=== PATIENT | female | born 1925 | race Caucasian/White ===

== ENCOUNTER 2016-09-29 13:18 | Inpatient (IN) | payer MEDICARE, BC ==
--- NOTE | 2016-09-29 13:55 | ERNOTE ---
Medical Problem HPI - Narrative Date of Service: 09/29/16 - General Chief Complaint: Nausea/Vomiting Time Seen by Provider: 09/29/16 13:42 Source: patient Exam Limitations: no limitations - Immun/Allergies/Home Medications Allergies/Adverse Reactions: Allergies No Known Allergies Allergy (Verified 09/29/16 13:39) Home Medications: HOME MEDICATIONS Aspirin [Aspirin Enteric Coated] 81 mg PO DAILY 04/11/13 [Last Taken Unknown] - History of Present History Narrative: Pt. comes in with c/o nausea and vomiting for two days. Pt. denies any SOB, CP , but states that she feels weak and has not been able to hold down foods or fluid since onset of symptoms. Pt. also states that she has diarrhea but denies any fever. Pt. denies any heart or lung disease. Pt. denies any alleviating factors, aggravating factors, or prehospital treatment. Review of Systems - Review of Systems Constitutional: Present: weakness, fatigue, malaise. Absent: recent illness, fever, chills, weight loss EYE: Present: no symptoms reported ENT: Present: no symptoms reported Respiratory: Present: no symptoms reported. Absent: shortness of breath, cough , wheezing Cardiology: Present: no symptoms reported. Absent: chest pain, palpitations, edema Gastrointestinal/Abdominal: Present: nausea, vomiting, diarrhea. Absent: abdominal pain Genitourinary: Present: no symptoms reported Musculoskeletal: Present: no symptoms reported. Absent: back pain, joint pain Skin: Present: no symptoms reported. Absent: rash, change in color Neurological: Present: weakness. Absent: headache, dizziness/light-headedness, numbness, tingling All Other Systems: All systems neg except as marked - Patient's Past Medical History Patient History - Medical: No pertinent hx Patient History - Cardiac/Respiratory: CVA/Stroke Patient History - Cancer: No Hx of Cancer Patient History - Surgical Procedures: Appendectomy, Cholecystectomy, , Total Knee Replacement Patient History - Other: None - Social History Living Situations: home Psych History: No pertinent hx Alcohol Use: none Drug Use: none Physical Exam - Physical Exam General Appearance: Present: wd/wn, alert, no apparent distress Eye Exam: Normal inspection: bilateral, PERRL: bilateral, EOMI: bilateral Ears, Nose, Throat: Present: normal ENT inspection, hearing grossly normal, normal pharynx Neck: Present: normal inspection, nontender. Absent: lymphadenopathy (R), lymphadenopathy (L) Respiratory: Present: no respiratory distress, normal breath sounds, no accessory muscle use, chest nontender, lungs clear Cardiovascular/Chest: Present: regular rate, rhythm, no murmur, normal peripheral pulses Gastrointestinal/Abdominal: Present: normal bowel sounds, nontender, nondistended, soft, no organomegaly Back Exam: Present: normal inspection, no CVA tenderness Extremity Exam: Present: normal inspection, non-tender, no edema, normal range of motion Neurological Exam: Present: alert, oriented, normal mood/affect, no motor/ sensory deficits Skin Exam: Present: warm/dry, pallor. Absent: skin rash ED Progress - Date and Time Seen: Date and Time: 09/29/16 19:52 Discussed with Natalia and will admit pt. for severe dehydration and VERONICA with acute gastroenteritis. - Results and Orders Patient's Lab Results:: I have reviewed the patient's lab results. - Vital Signs Patient's Vital Signs:: I have reviewed the patient's vital signs. Vital Signs: Vital Signs 09/29/16 13:33 Temperature 36.9 C Pulse Rate 83 Respiratory 12 Rate Blood Pressure 121/67 O2 Sat by Pulse 93 Oximetry - X-Ray X-Ray #1 X-Ray: chest Interpretation: Reviewed by me X-ray Comments: LLL infiltrate X-Ray #2 X-Ray: abdomen Interpretation: Reviewed by me X-ray Comments: no acute - CT/Ultrasound CT/Ultrasound Narrative: CT stone negative - Progress/Reassessment Chief Complaint: Nausea/Vomiting Progress:: Unchanged Departure - Departure Clinical Impression: Acute gastroenteritis, VERONICA (acute kidney injury) UTI (urinary tract infection) Qualifiers: Urinary tract infection type: acute cystitis Hematuria presence: with hematuria Qualified Code(s): N30.01 - Acute cystitis with hematuria Disposition: [facility] Condition: Fair
[2016-09-29] MEDS ORDERED: ONDANSETRON 4 MG TAB.RAPDIS PO ONE (13:57)
[2016-09-29] MEDS ORDERED: NORMAL SALINE 1,000 ML IV ONE ×2 (13:57→16:31)
[2016-09-29] MEDS ORDERED: ONDANSETRON HCL/PF 2 MG/ML VIAL ONE (14:20)
[2016-09-29 14:28] LABS: Hematocrit 44.1 % (37.0-47.0); Hemoglobin 14.6 gm/dL (12.5-16.0); Mean Corpuscular Hemoglobin 31.5 pg (27-31); Mean Corpuscular Hgb Conc 33.1 g/dl (32-36); Neutrophil # 8.4 K/mm3 (1.3-6.0); Neutrophil % 85.5 % (42-75.0); Platelet Count 151 K/mm3 (150-450); Red Blood Count 4.64 M/mm3 (4.2-5.4); White Blood Count 9.8 K/mm3 (4.0-10.5)
[2016-09-29] MEDS ORDERED: ONDANSETRON HCL/PF 2 MG/ML VIAL IV ONE (14:36)
[2016-09-29 14:40] LABS: Albumin * 3.7 gm/dl (3.4-5.0); Anion Gap 14.9 mmol/L (6.8-13.8); BUN/Creatinine Ratio 15.9 (9.0-21.6); Bilirubin, Total 0.7 mg/dL (0.0-1.1); Ca. Corrected For Albumin 8.2 mg/dL (8.4-10.2); Calcium * 8.3 mg/dL (7.9-10.9); Carbon Dioxide 26.6 mmol/L (24-32.6); Potassium 4.5 mmol/L (3.4-4.6); Total Protein 7.8 gm/dL (6.2-8.2)
[2016-09-29 17:53] LABS: Urine Bilirubin Negative (NEGATIVE); Urine Blood 25 /ul (NEGATIVE); Urine Ketone Negative (NEGATIVE); Urine Nitrite Negative (NEGATIVE); Urine Protein 15 mg/dL (NEGATIVE); Urine Specific Gravity >=1.030 SP.GR. (1.005-1.010); Urine Urobilinogen Normal (NORMAL); Urine pH 5.5 pH (5.0-7.0)
[2016-09-29 18:08] LABS: Urine Appearance Slightly Cloudy; Urine Bacteria 1+; Urine Color Yellow; Urine Fine Granular Cast 0-5 /LPF; Urine RBC 0-5 /hpf (0-5)
[2016-09-29] MEDS ORDERED: CEPHALEXIN MONOHYDRATE 500 MG CAPSULE PO SCH (20:30)
[2016-09-29] MEDS ORDERED: ONDANSETRON 4 MG TAB.RAPDIS ONE (20:37)
[2016-09-29] MEDS ORDERED: CEPHALEXIN MONOHYDRATE 250 MG CAPSULE ONE (20:37)
[2016-09-29] MEDS: ONDANSETRON 4 MG TAB.RAPDIS PO SCH (20:41)
[2016-09-29] MEDS: NORMAL SALINE 1,000 ML IV PRN (20:41)
--- NOTE | 2016-09-29 21:58 | HP ---
Chief Complaint - Chief Complaint Date of Service: 09/29/16 Time of Service: 21:57 Chief Complaint: Nausea, vomiting an diarrhea History of Present Illness: 89 years old female adm to the hospital from [facility] living [facility],pt of Dr. Marlow with reports of nausea, vomiting, weakness and diarrhea x2 days. PMH significant for CVA, Anemia, carotid stenosis and hypertension. pt stated she was seen today by the visiting nurse who recommended she go to the ER due to the persistent vomiting and diarrhea. she has not been able to tolerated food x 2 days and was experiencing weakness. she report a productive cough with thick clear sputum that have been intermittent for a while. she denies fever, chills, abdominal pain, and stated she have been using Aleve daily for arthritis pain. Her last loose reported bowel movement was upon adm. In ER urinalysis + UTI, BUN/Cre 44/2.77, CXR: New infiltrated left lung base suspicious for developing pneumonia. - Patient's Past Medical History Patient History - Medical: No pertinent hx, Anemia, Osteoarthritis Patient History - Cardiac/Respiratory: CVA/Stroke, Hypertension, Other - carotid stenosis Patient History - Cancer: No Hx of Cancer Patient History - Surgical Procedures: Appendectomy, Cholecystectomy, - x3, Total Knee Replacement - bilateral knee, Other - Angioplasty 10/2013 Patient History - Other: None - Family History Mother Family History - Medical: Diabetes Type 2 Insulin Dependent Family History - Cardiac/Respiratory: CHF - Social History Living Situations: assisted living Abuse History: No History of abuse Psych History: No pertinent hx Smoking Status: Former smoker Have you smoked in the past 12 months: No Do you dip or chew tobacco: No Alcohol Use: none Drug Use: none - Immunizations Immunizations Up to Date: No Hx Pneumococcal Vaccination: No Review Of Systems (GEN) - Review of Systems Generalized/Overall Review: Present: Weakness EENTM: Present: No Symptoms Reported Respiratory: Present: Cough Cardiac: Present: No Symptoms Reported Abdominal: Present: Nausea, Vomiting, Diarrhea Genitourinary: Present: No Symptoms Reported Musculoskeletal: Present: Joint Pain Neurological: Present: No Symptoms Reported Skin: Present: No Symptoms Reported Endocrine: Present: No Symptoms Reported Allergies/Adverse Reactions: Allergies Allergy/AdvReac Type Severity Reaction Status Date / Time No Known Allergies Allergy Verified 09/29/16 13:39 Home Medications: HOME MEDICATIONS Aspirin [Aspirin Enteric Coated] 81 mg PO DAILY 04/11/13 [Last Taken Unknown] Naproxen Sodium [Aleve] 220 mg PO DAILY 09/29/16 [Last Taken Unknown] Exam - Exam Vital Signs: Vital Signs - Last Taken Temp 36.4 C L 09/29/16 20:44 Pulse 94 09/29/16 20:44 Resp 14 09/29/16 20:44 BP 149/72 09/29/16 20:44 Pulse Ox 92 09/29/16 20:44 Constitutional: Present: Alert, Oriented x3, Cooperative, Well developed, No distress, Elderly, Obese ENT Exam: Present: dry mucous membranes Eye Exam: bilateral eye: PERRL Neck: Present: full range of motion Back Exam: Present: normal inspection, no CVA tenderness, no vertebral tenderness, CVA tenderness (R) Breasts: Present: Exam deferred Respiratory: Present: chest non-tender, normal breath sounds, no respiratory distress, no accessory muscle use Cardiovascular/Chest: Present: normal peripheral pulses, regular rate, rhythm, no chest tenderness, no edema, no gallop, no JVD, no murmur Peripheral Pulses: dorsalis-pedis (R): 3+, dorsalis-pedis (L): 3+ Abdomen: Present: soft, nontender, nondistended, no rebound tenderness, high pitched bowel sounds /Rectal: Present: Exam deferred Extremity: Present: normal range of motion, non-tender, normal inspection, no pedal edema, no calf tenderness, normal capillary refill Skin Exam: Present: normal color, warm/dry, no cyanosis, other - tenting Neurologic: Present: oriented x 3 Appearance: Present: appropriate appearance Eye contact: Present: cooperative, good eye contact Thoughts: Present: normal thought pattern Diagnostic Studies: Laboratory Results WBC 9.8 K/mm3 (4.0-10.5) 09/29/16 14:20 RBC 4.64 M/mm3 (4.2-5.4) 09/29/16 14:20 Hgb 14.6 gm/dL (12.5-16.0) 09/29/16 14:20 Hct 44.1 % (37.0-47.0) 09/29/16 14:20 MCV 95.0 fl (78-100) 09/29/16 14:20 MCH 31.5 pg (27-31) H 09/29/16 14:20 MCHC 33.1 g/dl (32-36) 09/29/16 14:20 RDW 14.0 % (11.5-14.0) 09/29/16 14:20 Plt Count 151 K/mm3 (150-450) 09/29/16 14:20 MPV 10.0 fl (6.0-9.5) H 09/29/16 14:20 Immature Gran % (Auto) 0.30 % (0.001-0.429) 09/29/16 14:20 Immature Gran # (Auto) 0.03 K/mm3 (0.000-0.0310) 09/29/16 14:20 Neutrophils % 85.5 % (42-75.0) H 09/29/16 14:20 Lymphocytes % 6.0 % (20-51) L 09/29/16 14:20 Monocytes % 7.9 % (0.0-9) 09/29/16 14:20 Eosinophils % 0.1 % (0.0-3.0) 09/29/16 14:20 Basophils % 0.2 % (0.0-1.0) 09/29/16 14:20 Nucleated RBC % 0.0 k/mm3 (0-1) 09/29/16 14:20 Neutrophils # 8.4 K/mm3 (1.3-6.0) H 09/29/16 14:20 Lymphocytes # 0.6 k/mm3 (1.5-3.5) L 09/29/16 14:20 Monocytes # 0.8 k/mm3 (0.0-1.0) 09/29/16 14:20 Eosinophils # 0.0 k/mm3 (0.0-0.7) 09/29/16 14:20 Absolute Basophils 0.0 k/mm3 (0.0-0.1) 09/29/16 14:20 Sodium 137 mmol/L (132-142) 09/29/16 14:20 Plasma Sodium 137 mmol/L (130-142) 09/29/16 14:20 Potassium 4.5 mmol/L (3.4-4.6) 09/29/16 14:20 Chloride 100 mmol/L (97-106) 09/29/16 14:20 Carbon Dioxide 26.6 mmol/L (24-32.6) 09/29/16 14:20 Anion Gap 14.9 mmol/L (6.8-13.8) H 09/29/16 14:20 BUN 44 mg/dL (3-23) H D 09/29/16 14:20 Creatinine 2.77 mg/dL (0.4-1.4) H D 09/29/16 14:20 Est GFR (Non-Af Amer) 17 mL/min (60-130) L D 09/29/16 14:20 BUN/Creatinine Ratio 15.9 (9.0-21.6) 09/29/16 14:20 Random Glucose 129 mg/dL (70-110) H 09/29/16 14:20 Lactic Acid, Venous 1.4 mmol/L (0.4-2.0) 09/29/16 14:20 Calcium 8.3 mg/dL (7.9-10.9) 09/29/16 14:20 Calcium Adj for Albumin 8.2 mg/dL (8.4-10.2) L 09/29/16 14:20 Total Bilirubin 0.7 mg/dL (0.0-1.1) 09/29/16 14:20 AST 42 U/L (0-48) 09/29/16 14:20 ALT 26 U/L (19-67) 09/29/16 14:20 Alkaline Phosphatase 67 U/L (50-170) 09/29/16 14:20 B-Natriuretic Peptide 210 pg/mL (5-550) 09/29/16 15:47 Total Protein 7.8 gm/dL (6.2-8.2) 09/29/16 14:20 Albumin 3.7 gm/dl (3.4-5.0) 09/29/16 14:20 Urine Color Yellow 09/29/16 16:50 Urine Appearance Slightly cloudy 09/29/16 16:50 Urine pH 5.5 pH (5.0-7.0) 09/29/16 16:50 Ur Specific [place] >=1.030 SP.GR. (1.005-1.010) 09/29/16 16:50 Urine Protein 15 mg/dL (NEGATIVE) H 09/29/16 16:50 Urine Glucose (UA) Negative mg/dL (NEGATIVE) 09/29/16 16:50 Urine Ketones Negative mg/dL (NEGATIVE) 09/29/16 16:50 Urine Blood 25 /ul (NEGATIVE) H 09/29/16 16:50 Urine Nitrate Negative (NEGATIVE) 09/29/16 16:50 Urine Bilirubin Negative mg/dl (NEGATIVE) 09/29/16 16:50 Prot Sulfosalicylic Acd Negative mg/dL (0) 09/29/16 16:50 Urine Urobilinogen Normal EU/dl (NORMAL) 09/29/16 16:50 Ur Leukocyte Esterase 75 /ul (NEGATIVE) H 09/29/16 16:50 Urine RBC 0-5 /hpf (0-5) 09/29/16 16:50 Urine WBC 10-25 /hpf (0-5) H 09/29/16 16:50 Ur Epithelial Cells 10-25 /hpf (0-5) H 09/29/16 16:50 Urine Bacteria 1+ (NONE) H 09/29/16 16:50 Hyaline Casts 5-10 /LPF (NONE) H 09/29/16 16:50 Fine Granular Casts 0-5 /LPF (NONE) H 09/29/16 16:50 Urine Culture Comments Culture to follow 09/29/16 16:50 CT ABD: No definitive evidence of acute intra-abdominal pelvic process. CXR: New infiltrate left lung base suspicious for developing pneumonia Assessment/Plan - Narrative Narrative: Acute Kidney injury- secondary to decreased oral intake and pt reports of vomiting, diarrhea and use of aleve for pain. on adm Bun/ Cre--->44/2.77 Continue with IVF hydration and monitor bmp in am Avoid NSAIDs and nephrotoxic agents Dehydration- secondary to decreased oral intake and vomiting plan same as #1 UTI Seen on urinalysis, culture pending D/C keflex and initiated levaquin Gastroenteritis Zofran PRN IVF hydration and supportive care CLD and advanced as tolerated Bronchitis vs pneumonia Continue with Robitussin, may consider Levaquin Lactic acid negative and procalcitonin pending VTE ppx SCD/ ambulate GI ppx: protonix daily - Assessment/Plan (1) VERONICA (acute kidney injury) Problem: Acute (2) Acute gastroenteritis Problem: Acute (3) UTI (urinary tract infection) Problem: Acute Qualifiers: Urinary tract infection type: acute cystitis Hematuria presence: with hematuria Qualified Code(s): N30.01 - Acute cystitis with hematuria (4) Dehydration Problem: Acute
[2016-09-29] MEDS ORDERED: guaiFENesin 100 MG/5 ML BTL PO PRN (22:33)
[2016-09-30] MEDS ORDERED: LEVOFLOXACIN 500 MG TABLET PO SCH
[2016-09-30] MEDS ORDERED: LEVOFLOXACIN 250 MG TABLET ONE (00:04)
[2016-09-30] MEDS: ONDANSETRON 4 MG TAB.RAPDIS PO SCH ×4 (03:24→19:52)
[2016-09-30 04:40] LABS: Anion Gap 12.9 mmol/L (6.8-13.8); BUN/Creatinine Ratio 18.8 (9.0-21.6); Calcium * 7.4 mg/dL (7.9-10.9); Carbon Dioxide 24.3 mmol/L (24-32.6); Estimated Creat Clear 16.8; Potassium 4.2 mmol/L (3.4-4.6)
[2016-09-30] MEDS: NORMAL SALINE 1,000 ML IV PRN ×2 (05:08→22:52)
[2016-09-30] MEDS: ASPIRIN 81 MG TABLET.DR PO SCH (08:19)
--- NOTE | 2016-09-30 08:59 | PN ---
Subjective - Date and Time Seen Date: 09/30/16 Time: 08:55 Subjective Narrative: No further nausea and vomiting no diarrhea no abdominal pain but still feeling weak Objective - Review of Systems Generalized/Overall Review: Reports: Weakness EENTM: Reports: No Symptoms Reported Respiratory: Reports: No Symptoms Reported Cardiac: Reports: No Symptoms Reported Abdominal: Reports: Nausea Genitourinary Symptoms: Reports: No Symptoms Reported Musculoskeletal Complaints: Reports: No Symptoms Reported Skin: Reports: No Symptoms Reported - Vitals Vitals: Last Vital Signs Temp 36.8 C 09/30/16 07:32 Pulse 86 09/30/16 07:32 Resp 20 09/30/16 07:32 BP 142/55 09/30/16 07:32 Pulse Ox 91 09/30/16 07:32 - Abnormal Lab Findings Abnormal Lab Findings: Abnormal Lab Results 09/29/16 09/30/16 Range/Units 22:52 04:19 Chloride 107 H (97-106) mmol/L BUN 40 H (3-23) mg/dL Creatinine 2.13 H D (0.4-1.4) mg/dL Est GFR (Non-Af Amer) 23 L D (60-130) mL/min Calcium 7.4 L (7.9-10.9) mg/dL Procalcitonin 0.78 H (0.05-0.50) ng/mL - Exam Constitutional: Present: Alert, Oriented x3, Cooperative, No distress Respiratory: Present: lungs clear Cardiovascular/Chest: Present: regular rate, rhythm Abdomen: Present: soft, nontender Extremity: Present: no pedal edema Neurologic: Present: acquisition editor II-XII nml as tested Assessment/Plan - Problems/Diagnosis (1) Dehydration Problem: Acute (2) Acute gastroenteritis Problem: Acute (3) VERONICA (acute kidney injury) Problem: Acute Narrative: Continue slow hydration (4) UTI (urinary tract infection) Problem: Acute Qualifiers: Urinary tract infection type: acute cystitis Hematuria presence: with hematuria Qualified Code(s): N30.01 - Acute cystitis with hematuria Narrative: Continue Levaquin
[2016-09-30] MEDS ORDERED: ONDANSETRON HCL/PF 2 MG/ML VIAL IV PRN (12:51)
[2016-10-01] MEDS: ONDANSETRON 4 MG TAB.RAPDIS PO SCH ×3 (01:32→15:29)
[2016-10-01 06:22] LABS: Albumin * 2.8 gm/dl (3.4-5.0); Anion Gap 13.7 mmol/L (6.8-13.8); Bilirubin, Total 0.6 mg/dL (0.0-1.1); Ca. Corrected For Albumin 8.2 mg/dL (8.4-10.2); Calcium * 7.6 mg/dL (7.9-10.9); Carbon Dioxide 24.5 mmol/L (24-32.6); Potassium 4.2 mmol/L (3.4-4.6); Total Protein 6.1 gm/dL (6.2-8.2)
--- NOTE | 2016-10-01 07:51 | PN ---
Subjective - Date and Time Seen Date: 10/01/16 Time: 07:46 Subjective Narrative: Complaining of weakness and nausea; still having diarrhea and several episodes of vomiting Objective - Review of Systems Generalized/Overall Review: Reports: Weakness Respiratory: Reports: No Symptoms Reported Cardiac: Reports: No Symptoms Reported Abdominal: Reports: No Symptoms Reported Genitourinary Symptoms: Reports: No Symptoms Reported Musculoskeletal Complaints: Reports: No Symptoms Reported Neurological: Reports: No Symptoms Reported Skin: Reports: No Symptoms Reported - Vitals Vitals: Last Vital Signs Temp 36.6 C 10/01/16 07:15 Pulse 83 10/01/16 07:15 Resp 18 10/01/16 07:15 BP 144/81 10/01/16 07:15 Pulse Ox 91 10/01/16 07:15 - Abnormal Lab Findings Abnormal Lab Findings: Abnormal Lab Results 10/01/16 10/01/16 Range/Units 05:15 05:15 ESR 29 H (0-15) mm/hr Sodium 144 H (132-142) mmol/L Plasma Sodium 144 H (130-142) mmol/L Chloride 110 H (97-106) mmol/L BUN 24 H (3-23) mg/dL Creatinine 1.60 H D (0.4-1.4) mg/dL Est GFR (Non-Af Amer) 32 L D (60-130) mL/min Calcium 7.6 L (7.9-10.9) mg/dL Calcium Adj for Albumin 8.2 L (8.4-10.2) mg/dL Total Protein 6.1 L (6.2-8.2) gm/dL Albumin 2.8 L (3.4-5.0) gm/dl - Exam Constitutional: Present: Alert, Oriented x3, Cooperative, No distress ENT Exam: Present: normal ENT inspection Respiratory: Present: lungs clear, normal breath sounds, no respiratory distress Cardiovascular/Chest: Present: regular rate, rhythm, no JVD Abdomen: Present: soft, nontender, nondistended Extremity: Present: no pedal edema Skin Exam: Present: normal color, warm/dry Assessment/Plan Plan Narrative: Hydration has improved creatinine was 2.7 now down to 1.6; sodium is 144 was changed iv to half strength saline; She still having nausea vomiting and diarrhea therefore I don't think it will be safe for her to go home - Problems/Diagnosis (1) Dehydration Problem: Acute (2) Acute gastroenteritis Problem: Acute (3) VERONICA (acute kidney injury) Problem: Resolved (4) UTI (urinary tract infection) Problem: Acute Qualifiers: Urinary tract infection type: acute cystitis Hematuria presence: with hematuria Qualified Code(s): N30.01 - Acute cystitis with hematuria
[2016-10-01] MEDS: ASPIRIN 81 MG TABLET.DR PO SCH (08:31)
[2016-10-01] MEDS: 0.5 NORMAL SALINE 1,000 ML IV PRN ×2 (08:31→19:50)
[2016-10-01] MEDS: ACETAMINOPHEN 325 MG TABLET PO PRN (15:30)
[2016-10-01] MEDS: METOCLOPRAMIDE HCL 5 MG/ML VIAL IV PRN (19:50)
[2016-10-01] MEDS ORDERED: LEVOFLOXACIN 250 MG TABLET PO SCH (21:00)
[2016-10-01] MEDS: LEVOFLOXACIN 250 MG TABLET PO SCH (22:32)
[2016-10-02 04:54] LABS: Hematocrit 33.8 % (37.0-47.0); Hemoglobin 11.1 gm/dL (12.5-16.0); Mean Cell Volume 95.8 fl (78-100); Mean Corpuscular Hemoglobin 31.4 pg (27-31); Mean Corpuscular Hgb Conc 32.8 g/dl (32-36); Mean Platelet Volume 9.7 fl (6.0-9.5); Neutrophil # 5.8 K/mm3 (1.3-6.0); Neutrophil % 79.5 % (42-75.0); Platelet Count 111 K/mm3 (150-450); Red Blood Count 3.53 M/mm3 (4.2-5.4); White Blood Count 7.2 K/mm3 (4.0-10.5)
[2016-10-02 05:08] LABS: Albumin * 2.5 gm/dl (3.4-5.0); Anion Gap 9.2 mmol/L (6.8-13.8); BUN/Creatinine Ratio 12.9 (9.0-21.6); Bilirubin, Total 0.6 mg/dL (0.0-1.1); Ca. Corrected For Albumin 8.2 mg/dL (8.4-10.2); Calcium * 7.3 mg/dL (7.9-10.9); Carbon Dioxide 23.7 mmol/L (24-32.6); Potassium 3.9 mmol/L (3.4-4.6); Total Protein 5.7 gm/dL (6.2-8.2)
--- NOTE | 2016-10-02 06:24 | PN ---
Subjective - Date and Time Seen Date: 10/02/16 Time: 06:17 Subjective Narrative: Patient seen today denies nausea and vomiting overnight. she anticipating having Brat diet. Report hyperactive bowel sounds and episode of diarrhea overnight and early this morning. Objective - Review of Systems Generalized/Overall Review: Reports: No Symptoms Reported EENTM: Reports: No Symptoms Reported Respiratory: Reports: No Symptoms Reported Cardiac: Reports: No Symptoms Reported Abdominal: Reports: Nausea, Vomiting, Diarrhea Genitourinary Symptoms: Reports: No Symptoms Reported Musculoskeletal Complaints: Reports: No Symptoms Reported Neurological: Reports: No Symptoms Reported Skin: Reports: No Symptoms Reported Endocrine: Reports: No Symptoms Reported - Vitals Vitals: Last Vital Signs Temp 37.2 C 10/02/16 03:00 Pulse 82 10/02/16 03:00 Resp 20 10/02/16 03:00 BP 153/61 10/02/16 03:00 Pulse Ox 92 10/02/16 03:00 - Abnormal Lab Findings Abnormal Lab Findings: Abnormal Lab Results 10/02/16 10/02/16 10/02/16 Range/Units 04:51 04:51 04:51 RBC 3.53 L (4.2-5.4) M/mm3 Hgb 11.1 L (12.5-16.0) gm/dL Hct 33.8 L (37.0-47.0) % MCH 31.4 H (27-31) pg Plt Count 111 L (150-450) K/mm3 MPV 9.7 H (6.0-9.5) fl Immature Gran % (Auto) 0.60 H (0.001-0.429) % Immature Gran # (Auto) 0.04 H (0.000-0.0310) K/mm3 Neutrophils % 79.5 H (42-75.0) % Lymphocytes % 10.9 L (20-51) % Lymphocytes # 0.8 L (1.5-3.5) k/mm3 ESR 24 H (0-15) mm/hr Chloride 108 H (97-106) mmol/L Carbon Dioxide 23.7 L (24-32.6) mmol/L Est GFR (Non-Af Amer) 38 L (60-130) mL/min Calcium 7.3 L (7.9-10.9) mg/dL Calcium Adj for Albumin 8.2 L (8.4-10.2) mg/dL Total Protein 5.7 L (6.2-8.2) gm/dL Albumin 2.5 L (3.4-5.0) gm/dl - Exam Constitutional: Present: Alert, Oriented x3, Cooperative, No distress ENT Exam: Present: moist mucous membranes Neck: Present: full range of motion Respiratory: Present: chest non-tender, lungs clear, normal breath sounds, no respiratory distress Cardiovascular/Chest: Present: normal peripheral pulses, regular rate, rhythm, no chest tenderness, no edema Abdomen: Present: soft, nondistended, no rebound tenderness, high pitched bowel sounds /Rectal: Present: Exam deferred Extremity: Present: normal range of motion, non-tender, normal inspection, no pedal edema, no calf tenderness Skin Exam: Present: normal color, warm/dry, no cyanosis Neurologic: Present: oriented x 3 Appearance: Present: appropriate appearance Eye contact: Present: good eye contact Thoughts: Present: normal thought pattern Assessment/Plan Plan Narrative: Gastroenteritis D/C Zofran and initiated Reglan, pt report improvement in s/s IVF hydration potassium added to solution and supportive care BRAT diet and advanced as tolerated ESR trending down Diarrhea- likely due to antibiotic use C-diff negative May use Imodium PRN IVF hydration potassium added to solution supportive care Lactobacillus schedule 09/29/16 CT ABD: No acute intra-abdominal process, diverticulosis no diverticulitis. UTI Seen on urinalysis Urine culture no growth Continue with levaquin Bronchitis Continue with Robitussin Lactic acid negative and procalcitonin was slightly elevated Sputum culture pending Acute Kidney injury- secondary to decreased oral intake and pt reports of vomiting, diarrhea and use of aleve for pain. Resolved on adm Bun/ Cre--->44/2.77--->1.40 Continue with IVF hydration and monitor bmp in am Avoid NSAIDs and nephrotoxic agents Dehydration _Resolved VTE ppx SCD/ ambulate GI ppx: protonix daily Time 15 minutes Anticipating DC home when s/s improved 0-1 day - Problems/Diagnosis (1) VERONICA (acute kidney injury) Problem: Resolved (2) Acute gastroenteritis Problem: Acute (3) UTI (urinary tract infection) Problem: Acute Qualifiers: Urinary tract infection type: acute cystitis Hematuria presence: with hematuria Qualified Code(s): N30.01 - Acute cystitis with hematuria (4) Dehydration Problem: Resolved (5) Diarrhea Problem: Acute
[2016-10-02] MEDS ORDERED: POTASSIUM CHLORIDE 20 MEQ in 0.5 NORMAL SALINE 1,000 ML IV PRN (06:34)
[2016-10-02] MEDS: LOPERAMIDE HCL 2 MG CAPSULE PO PRN ×3 (08:53→15:48)
[2016-10-02] MEDS: LACTOBACILLUS RHAMNOSUS GG 1 EACH BOX PO SCH ×3 (08:53→17:56)
[2016-10-02] MEDS: ASPIRIN 81 MG TABLET.DR PO SCH (08:53)
[2016-10-02] MEDS: POTASSIUM CHLORIDE 20 MEQ in 0.5 NORMAL SALINE 1,000 ML IV SCH ×2 (08:54→19:43)
[2016-10-02] MEDS: METOCLOPRAMIDE HCL 5 MG/ML VIAL IV PRN (18:26)
[2016-10-02] MEDS: LEVOFLOXACIN 250 MG TABLET PO SCH (20:33)
[2016-10-03] MEDS: POTASSIUM CHLORIDE 20 MEQ in 0.5 NORMAL SALINE 1,000 ML IV SCH ×2 (05:07→17:18)
[2016-10-03 05:09] LABS: BUN/Creatinine Ratio 8.2 (9.0-21.6); Calcium * 7.5 mg/dL (7.9-10.9); Carbon Dioxide 23.3 mmol/L (24-32.6); Estimated Creat Clear 32.5; Potassium 4.3 mmol/L (3.4-4.6)
--- NOTE | 2016-10-03 06:29 | PN ---
Subjective - Date and Time Seen Date: 10/03/16 Time: 06:25 Subjective Narrative: Patient seen today in bed with cough clear think mucus, she denies fever, chills , and stated she want to have regular meals. tolerated BRAT diet well. Denies nausea, vomiting or diarrhea for past 24hr. Objective - Review of Systems Generalized/Overall Review: Reports: No Symptoms Reported EENTM: Reports: No Symptoms Reported Respiratory: Reports: Cough Cardiac: Reports: No Symptoms Reported Abdominal: Reports: No Symptoms Reported Genitourinary Symptoms: Reports: No Symptoms Reported Musculoskeletal Complaints: Reports: No Symptoms Reported Neurological: Reports: No Symptoms Reported Skin: Reports: No Symptoms Reported Endocrine: Reports: No Symptoms Reported - Vitals Vitals: Last Vital Signs Temp 36.6 C 10/03/16 03:00 Pulse 79 10/03/16 03:00 Resp 18 10/03/16 03:00 BP 155/81 10/03/16 03:00 Pulse Ox 94 10/03/16 03:00 - Abnormal Lab Findings Abnormal Lab Findings: Abnormal Lab Results 10/03/16 10/03/16 Range/Units 04:55 04:55 ESR 24 H (0-15) mm/hr Chloride 108 H (97-106) mmol/L Carbon Dioxide 23.3 L (24-32.6) mmol/L Est GFR (Non-Af Amer) 50 L D (60-130) mL/min BUN/Creatinine Ratio 8.2 L (9.0-21.6) Calcium 7.5 L (7.9-10.9) mg/dL - Exam Constitutional: Present: Alert, Oriented x3, Cooperative, No distress ENT Exam: Present: hearing grossly normal, moist mucous membranes Neck: Present: full range of motion Breasts: Present: Exam deferred Respiratory: Present: chest non-tender, normal breath sounds, no respiratory distress, decreased breath sounds Cardiovascular/Chest: Present: normal peripheral pulses, regular rate, rhythm, no chest tenderness, no edema Abdomen: Present: Normal bowel sounds, soft, nontender, nondistended, no rebound tenderness /Rectal: Present: Exam deferred Extremity: Present: normal range of motion, non-tender, normal inspection, no pedal edema, no calf tenderness Skin Exam: Present: normal color, warm/dry, no cyanosis Lymphatic: Present: no adenopathy Neurologic: Present: oriented x 3 Appearance: Present: appropriate appearance Eye contact: Present: cooperative, good eye contact Thoughts: Present: normal thought pattern Assessment/Plan Plan Narrative: Gastroenteritis- improved pt report s/s resolved May DC IVF hydration when pt eating well Resume Regular diet today, pt stated she tolerated BRAT diet and want regular meal ESR trending down Bronchitis - gradually improving Robitussin Q8hrs schedule Lactic acid negative and procalcitonin was slightly elevated Sputum culture Enterobacter cloacae, with several epithelial cells. possible contaminated. 10/01/16 Repeated CXR: improved left lung base consolidation. UTI Seen on urinalysis Urine culture no growth Continue with levaquin until 10/03/16 Acute Kidney injury- secondary to decreased oral intake and pt reports of vomiting, diarrhea and use of aleve for pain. Resolved on adm Bun/ Cre--->44/2.77--->1.40---> 1.10 WNL Continue with IVF hydration and monitor bmp in am Avoid NSAIDs and nephrotoxic agents Dehydration _Resolved Diarrhea- likely due to antibiotic use - Resolved C-diff negative May use Imodium PRN IVF hydration potassium added to solution supportive care Lactobacillus schedule 09/29/16 CT ABD: No acute intra-abdominal process, diverticulosis no diverticulitis. VTE ppx SCD/ ambulate GI ppx: protonix daily Time 15 minutes Anticipating DC home Tuesday Code Status: Full - Problems/Diagnosis (1) VERONICA (acute kidney injury) Problem: Resolved (2) Acute gastroenteritis Problem: Acute (3) UTI (urinary tract infection) Problem: Acute Qualifiers: Urinary tract infection type: acute cystitis Hematuria presence: with hematuria Qualified Code(s): N30.01 - Acute cystitis with hematuria (4) Dehydration Problem: Resolved (5) Diarrhea Problem: Resolved
[2016-10-03] MEDS: LACTOBACILLUS RHAMNOSUS GG 1 EACH BOX PO SCH ×3 (10:10→17:16)
[2016-10-03] MEDS: ASPIRIN 81 MG TABLET.DR PO SCH (10:10)
[2016-10-03] MEDS: guaiFENesin 100 MG/5 ML BTL PO SCH ×3 (10:10→21:49)
[2016-10-03] MEDS: ACETAMINOPHEN 325 MG TABLET PO PRN (17:15)
[2016-10-03] MEDS: LEVOFLOXACIN 250 MG TABLET PO SCH (21:48)
[2016-10-04] MEDS ORDERED: hydrALAZINE HCL 20 MG/ML VIAL IV PRN (04:40)
--- NOTE | 2016-10-04 06:19 | PN ---
Subjective - Date and Time Seen Date: 10/04/16 Time: 06:11 Subjective Narrative: patient seen today sitting up in chair, she denies nausea, vomiting or diarrhea and tolerating meals well. pt stated overnight she have frequent urination and no dysuria. Objective - Review of Systems Generalized/Overall Review: Reports: No Symptoms Reported EENTM: Reports: No Symptoms Reported Respiratory: Reports: No Symptoms Reported Cardiac: Reports: No Symptoms Reported Abdominal: Reports: No Symptoms Reported Genitourinary Symptoms: Reports: Frequency Musculoskeletal Complaints: Reports: No Symptoms Reported Neurological: Reports: No Symptoms Reported Skin: Reports: No Symptoms Reported Endocrine: Reports: No Symptoms Reported - Vitals Vitals: Last Vital Signs Temp 36.5 C 10/04/16 02:04 Pulse 85 10/04/16 05:00 Resp 20 10/04/16 02:04 BP 183/94 10/04/16 05:00 Pulse Ox 91 10/04/16 02:04 - Exam Constitutional: Present: Alert, Oriented x3, Cooperative, Well developed, No distress, Elderly ENT Exam: Present: normal ENT inspection Neck: Present: full range of motion Respiratory: Present: chest non-tender, lungs clear, normal breath sounds, no respiratory distress Cardiovascular/Chest: Present: normal peripheral pulses, regular rate, rhythm, no chest tenderness, no edema Abdomen: Present: Normal bowel sounds, soft, nontender, nondistended /Rectal: Present: Exam deferred Extremity: Present: normal range of motion, non-tender, normal inspection, no pedal edema, no calf tenderness Skin Exam: Present: normal color, warm/dry, no cyanosis Neurologic: Present: oriented x 3 Appearance: Present: appropriate appearance Eye contact: Present: cooperative Assessment/Plan Plan Narrative: Hypertension During this adm BP gradually trending up Hydralazine PRN Initiated Norvasc 5mg Qday Monitor Vital signs q shift. Bronchitis - gradually improving Robitussin Q8hrs schedule Lactic acid negative and procalcitonin was slightly elevated Sputum culture Enterobacter cloacae, with several epithelial cells. possible contaminated. 10/01/16 Repeated CXR: improved left lung base consolidation. UTI Seen on urinalysis Urine culture no growth 10/03/16 last dose Levaquin given Acute Kidney injury- secondary to decreased oral intake and pt reports of vomiting, diarrhea and use of aleve for pain. Resolved on adm Bun/ Cre--->44/2.77--->1.40---> 1.10 WNL Continue with IVF hydration and monitor bmp in am Avoid NSAIDs and nephrotoxic agents Dehydration _Resolved Gastroenteritis- Resolved pt report s/s resolved May DC IVF hydration when pt eating well Resume Regular diet today, pt stated she tolerated BRAT diet and want regular meal ESR trending down Diarrhea- likely due to antibiotic use - Resolved C-diff negative May use Imodium PRN IVF hydration potassium added to solution supportive care Lactobacillus schedule 09/29/16 CT ABD: No acute intra-abdominal process, diverticulosis no diverticulitis. VTE ppx SCD/ ambulate GI ppx: protonix daily Time 15 minutes Anticipating DC home later today Code Status: Full - Problems/Diagnosis (1) VERONICA (acute kidney injury) Problem: Resolved (2) Acute gastroenteritis Problem: Resolved (3) UTI (urinary tract infection) Problem: Acute Qualifiers: Urinary tract infection type: acute cystitis Hematuria presence: with hematuria Qualified Code(s): N30.01 - Acute cystitis with hematuria (4) Dehydration Problem: Resolved (5) Diarrhea Problem: Resolved (6) Hypertension Problem: Acute
[2016-10-04] MEDS: guaiFENesin 100 MG/5 ML BTL PO SCH ×3 (06:52→23:09)
[2016-10-04 06:58] LABS: Hematocrit 36.8 % (37.0-47.0); Hemoglobin 12.5 gm/dL (12.5-16.0); Mean Cell Volume 93.4 fl (78-100); Mean Corpuscular Hemoglobin 31.7 pg (27-31); Mean Platelet Volume 9.9 fl (6.0-9.5); Neutrophil # 5.1 K/mm3 (1.3-6.0); Neutrophil % 77.2 % (42-75.0); Platelet Count 120 K/mm3 (150-450); Red Blood Count 3.94 M/mm3 (4.2-5.4); Red Cell Distribution Width 13.6 % (11.5-14.0); White Blood Count 6.7 K/mm3 (4.0-10.5)
[2016-10-04 07:15] LABS: Anion Gap 13.3 mmol/L (6.8-13.8); BUN/Creatinine Ratio 7.3 (9.0-21.6); Bilirubin, Total 0.6 mg/dL (0.0-1.1); Ca. Corrected For Albumin 8.5 mg/dL (8.4-10.2); Carbon Dioxide 26.1 mmol/L (24-32.6); Potassium 4.4 mmol/L (3.4-4.6); Total Protein 6.7 gm/dL (6.2-8.2)
[2016-10-04] MEDS: LACTOBACILLUS RHAMNOSUS GG 1 EACH BOX PO SCH ×3 (08:01→16:31)
[2016-10-04] MEDS: ASPIRIN 81 MG TABLET.DR PO SCH (08:01)
[2016-10-04] MEDS ORDERED: amLODIPine BESYLATE 5 MG TABLET PO SCH (09:00)
[2016-10-04] MEDS: HYDROCHLOROTHIAZIDE 25 MG TABLET PO SCH (10:07)
[2016-10-04] MEDS: LEVOFLOXACIN 250 MG TABLET PO SCH (20:17)
[2016-10-04] MEDS: POTASSIUM CHLORIDE 20 MEQ in 0.5 NORMAL SALINE 1,000 ML IV SCH (20:19)
[2016-10-04] MEDS ORDERED: amLODIPine BESYLATE 5 MG TABLET PO ONE (23:37)
[2016-10-05] MEDS ORDERED: hydrALAZINE HCL 20 MG/ML VIAL IV PRN (02:33)
[2016-10-05] MEDS: ACETAMINOPHEN 325 MG TABLET PO PRN (03:46)
[2016-10-05] MEDS ORDERED: amLODIPine BESYLATE 10 MG TABLET PO SCH (06:05)
[2016-10-05] MEDS: guaiFENesin 100 MG/5 ML BTL PO SCH (06:40)
[2016-10-05] MEDS: LACTOBACILLUS RHAMNOSUS GG 1 EACH BOX PO SCH (08:41)
[2016-10-05] MEDS: ASPIRIN 81 MG TABLET.DR PO SCH (08:41)
--- NOTE | 2016-10-05 08:55 | DS ---
(1) Dehydration Problem: Resolved (2) Acute gastroenteritis Problem: Resolved (3) VERONICA (acute kidney injury) Problem: Resolved (4) UTI (urinary tract infection) Problem: Acute Qualifiers: Urinary tract infection type: acute cystitis Hematuria presence: with hematuria Qualified Code(s): N30.01 - Acute cystitis with hematuria (5) Hypertension Problem: Acute Description of Stay: 89-year-old white female admitted because of nausea vomiting and diarrhea. She also have urinary tract infection. She was treated with oral Levaquin and IV.. She was also dehydrated and prerenal insufficiency and this was corrected with slow hydration she was having high blood pressure she received IV hydralazine and was started on Norvasc and hydrochlorothiazide ;on the day of discharge she is feeling better Procedures Performed: none Discharge Disposition: [facility] Disposition: [facility] Condition: Fair Discharge Activity: Activity as tolerated Discharge Diet: Resume usual diet Additional Patient Instructions (free text): Follow up with Dr. Marlow in 1 week Chest x-ray CBC CMP in 1 week Prescriptions (Any new or edited meds): Hydrochlorothiazide [Hydrodiuril] 25 mg PO DAILY@1100 #90 tablet Levofloxacin [Levaquin] 250 mg PO Q24H #5 tablet amLODIPine BESYLATE [Norvasc] 10 mg PO DAILY #30 tablet Complete Home Medications List: Complete Home Medication List: Aspirin [Aspirin Enteric Coated] 81 mg PO DAILY 04/11/13 Hydrochlorothiazide [Hydrodiuril] 25 mg PO DAILY@1100 #90 tablet 10/05/16 Levofloxacin [Levaquin] 250 mg PO Q24H #5 tablet 10/05/16 amLODIPine BESYLATE [Norvasc] 10 mg PO DAILY #30 tablet 10/05/16
[2016-10-05] MEDS: HYDROCHLOROTHIAZIDE 25 MG TABLET PO SCH (10:19)
[2016-10-05 10:48] VITALS: BP 122/66
== END 2016-10-05 13:52 | DRG 683 ==
LOC: ER 13:18 → MS 19:54 → OBSVTOIN 10-01 09:49
PROVIDERS: ADMIT Nurse Practitioner Gerontology; ATTEND Internal Medicine
PROC: 0T9B70Z Drainage of Bladder with Drainage Device, Via Natural or Artificial Opening (ICD-10-PCS; principal; 2016-09-29)
DX: N17.9 Acute kidney failure, unspecified (principal); N30.01 Acute cystitis with hematuria; K52.9 Noninfective gastroenteritis and colitis, unspecified; E86.0 Dehydration; J40 Bronchitis, not specified as acute or chronic; I10 Essential (primary) hypertension; Z79.82 Long term (current) use of aspirin; Z86.73 Personal history of transient ischemic attack (TIA), and cerebral infarction without residual deficits
CPT/HCPCS: 36415; 51701; 71010; 71020; 74020; 74176; 80048; 80053; 81001; 83605; 83880; 84145; 85025; 85652; 87040; 87070; 87077; 87081; 87086; 87186; 87493; 96374; 97116; 97161; 97165; 99283; G0378